=== PATIENT | male | born 1930 | race Caucasian/White ===

== ENCOUNTER 2017-12-05 00:35 | Day surgery (SDC) | payer MEDICARE ==
[2017-12-04 09:46] LABS: BASOPHILS ABSOLUTE AUTO 0.09 K/mm3 (0.00-0.23); BASOPHILS PERCENT AUTO 1 % (0-2); EOSINOPHILS ABSOLUTE AUTO 0.25 K/mm3 (0.00-0.68); EOSINOPHILS PERCENT AUTO 4 % (0-6); Hematocrit 41.7 % (37.0-53.0); Hemoglobin 13.6 g/dL (13.5-17.5); IMMATURE GRAN ABSOLUTE AUTO 0.01 K/mm3 (0.00-0.10); IMMATURE GRAN PERCENT AUTO 0 % (0-1); LYMPHOCYTES ABSOLUTE AUTO 2.05 K/mm3 (0.84-5.20); LYMPHOCYTES PERCENT AUTO 31 % (21-46); MONOCYTES PERCENT AUTO 12 % (4-13); Mean Corpuscular HGB 30.4 pg (26.0-34.0); Mean Corpuscular HGB Conc 32.6 g/dL (31.5-36.5); Mean Corpuscular Volume 93 fL (80-100); Mean Platelet Volume 10.5 fL (9.1-12.4); NEUTROPHILS ABSOLUTE AUTO 3.39 K/mm3 (1.96-9.15); NEUTROPHILS PERCENT AUTO 51 % (41-73); Platelet Count 218 K/mm3 (150-400); RDW Coefficient Variation 14.1 % (11.7-14.2); RDW Standard Deviation 47.9 fL (35.1-46.3); Red Blood Cell Count 4.48 M/mm3 (4.30-5.90); White Blood Cell Count 6.59 K/mm3 (4.00-11.30)
[2017-12-04 09:56] LABS: International Normalized Ratio 1.06; Prothrombin Time Results 10.9 Sec (9.7-11.5)
[2017-12-04 10:10] LABS: Bun/Creatinine Ratio 15.1 (12.0-20.0); Calcium, Blood 9.3 mg/dL (8.5-10.1); Creatinine, Blood 1.46 mg/dL (0.60-1.20); Potassium, Blood 4.4 mmol/L (3.5-5.5)
[~2017-12-05] VITALS: Ht 167.6 cm; Wt 64.0 kg
[~2017-12-05 00:35] MED LIST: ACET325 PO; ASPI81CH PO; ATOR10 PO; CALCAVITD PO; CARV3.125 PO; DIGO.125 PO; DONE5 PO; ELIQUIS2.5 MG PO; FURO100EL PO; FURO40 PO; GALA8; Hair, Skin & N1 EACH PO; LOSA25 PO; METF500C PO; NIAC500 PO; SPIR25 PO; UBIQUINOL PO; WARF3 PO
== END 2017-12-05 13:15 | disposition home or self-care (01) ==
LOC: MHTC 00:35
PROVIDERS: Internal Medicine Cardiovascular Disease
PROC: 0JPT0PZ Removal of Cardiac Rhythm Related Device from Trunk Subcutaneous Tissue and Fascia, Open Approach (ICD-10-PCS; principal; 2017-12-05)
PROC: 0JH606Z Insertion of Pacemaker, Dual Chamber into Chest Subcutaneous Tissue and Fascia, Open Approach (ICD-10-PCS; 2017-12-05)
DX: Z45.010 Encounter for checking and testing of cardiac pacemaker pulse generator [battery] (principal); I48.0 Paroxysmal atrial fibrillation; I50.9 Heart failure, unspecified; I42.0 Dilated cardiomyopathy; Z79.02 Long term (current) use of antithrombotics/antiplatelets; Z79.899 Other long term (current) drug therapy
CPT/HCPCS: 33240; 33263; 36415; 80048; 85025; 85610; 99152; 99153; C1721; J0690; J1644; J2250; J3010; J7030; J7040

== ENCOUNTER 2019-06-03 21:39 | Emergency (ER) | payer MEDICARE ==
[~2019-06-03] VITALS: Ht 170.2 cm; Wt 68.0 kg
[2019-06-03] MEDS ORDERED: PHAZYME250 MG (23:53)
[2019-06-07] MEDS ORDERED: Exelon1 EACH TD (17:08)
[2019-06-07] MEDS ORDERED: Razadyne12 MG PO ×2 (17:08→20:18)
[2019-06-07] MEDS ORDERED: METF500 PO (20:19)
[2019-06-07] MEDS ORDERED: METOPROLOL SUCC25 MG PO (20:20)
== END 2019-06-04 02:20 | disposition home or self-care (01) ==
LOC: ER 21:39
DX: S41.111A Laceration without foreign body of right upper arm, initial encounter (principal); S51.011A Laceration without foreign body of right elbow, initial encounter; I48.91 Unspecified atrial fibrillation; I10 Essential (primary) hypertension; F03.90 Unspecified dementia, unspecified severity, without behavioral disturbance, psychotic disturbance, mood disturbance, and anxiety; Z79.899 Other long term (current) drug therapy; Z87.891 Personal history of nicotine dependence; W01.0XXA Fall on same level from slipping, tripping and stumbling without subsequent striking against object, initial encounter
CPT/HCPCS: 70450; 93005; 93010; 99284-25